=== PATIENT | female | born 1945 ===

== ENCOUNTER 2019-07-10 21:19 | Emergency (ER) | payer SELFPAY ==
[~2019-07-10] VITALS: Ht 142.2 cm; Wt 71.7 kg
[2019-07-10] MEDS ORDERED: TRAM50 (23:47)
[2019-07-11 00:41] LABS: BASOPHILS ABSOLUTE AUTO 0.06 K/mm3 (0.00-0.23); BASOPHILS PERCENT AUTO 1 % (0-2); EOSINOPHILS PERCENT AUTO 4 % (0-6); Hemoglobin 11.9 g/dL (11.5-16.0); IMMATURE GRAN ABSOLUTE AUTO 0.06 K/mm3 (0.00-0.10); IMMATURE GRAN PERCENT AUTO 1 % (0-1); LYMPHOCYTES ABSOLUTE AUTO 2.26 K/mm3 (0.84-5.20); LYMPHOCYTES PERCENT AUTO 31 % (21-46); MONOCYTES PERCENT AUTO 12 % (4-13); Mean Corpuscular HGB 31.6 pg (26.0-34.0); Mean Corpuscular HGB Conc 33.1 g/dL (31.5-36.5); Mean Corpuscular Volume 96 fL (80-100); Mean Platelet Volume 9.4 fL (9.1-12.4); NEUTROPHILS PERCENT AUTO 51 % (41-73); Platelet Count 354 K/mm3 (150-400); RDW Coefficient Variation 11.2 % (11.7-14.2); RDW Standard Deviation 39.5 fL (35.1-46.3); Red Blood Cell Count 3.76 M/mm3 (3.80-5.20); White Blood Cell Count 7.28 K/mm3 (4.00-11.30)
[2019-07-11 00:59] LABS: Alanine Aminotransfer (ALT/SGP 19 U/L (12-78); Albumin, Blood 3.1 g/dL (3.4-5.0); Albumin/Globulin Ratio 0.8 (0.8-1.8); Alk Phos 73 U/L (50-136); Anion Gap 8 mmol/L (6-16); Aspartate Aminotrans (AST/SGOT 13 U/L (12-37); Bilirubin, Total 0.2 mg/dL (0.1-1.0); Blood Urea Nitrogen 17 mg/dL (8-24); Bun/Creatinine Ratio 21.2 (12.0-20.0); CO2, Blood 28 mmol/L (21-32); Calcium, Blood 8.8 mg/dL (8.5-10.1); Chloride, Blood 105 mmol/L (98-108); Globulin, Blood 3.8 g/dL (2.2-4.0); Glomerular Filtration Rate >60 (60-); Glucose, Blood 136 mg/dL (70-99); Potassium, Blood 3.1 mmol/L (3.5-5.5); Sodium, Blood 141 mmol/L (136-145); Total Protein, Blood 6.9 g/dL (6.4-8.2)
[2019-07-11] MEDS ORDERED: Lasix20 MG PO (01:54)
[2019-07-11] MEDS ORDERED: Klor-Con M1010 MEQ PO (01:54)
[2019-07-13] MEDS ORDERED: POTA10T PO (14:11)
[2019-07-13] MEDS ORDERED: LOSA50 PO (14:13)
[2019-07-13] MEDS ORDERED: EUTHYROX100 MCG PO (14:14)
== END 2019-07-11 02:29 | disposition home or self-care (01) ==
LOC: ER 21:19
PROVIDERS: Physician Assistant
DX: M71.21 Synovial cyst of popliteal space [Baker], right knee (principal); E87.6 Hypokalemia; R60.0 Localized edema
CPT/HCPCS: 36415; 80053; 83880; 85025; 93970; 99284-25

== ENCOUNTER 2019-07-28 09:26 | Day surgery (SDC) | payer SELFPAY ==
[~2019-07-28] VITALS: Ht 154.9 cm; Wt 68.7 kg
[~2019-07-28 09:26] MED LIST: EUTHYROX100 MCG PO; Klor-Con M1010 MEQ PO; LOSA50 PO; Lasix20 MG PO; POTA10T PO; TRAM50
--- NOTE | 2019-07-28 09:59 | NUR ---
INTO [facility]-ESCORTED BY DAUGHTER DUSTIN. PT IS PRIMARIY [place]IN[place] SPEAKING AND HAD DECLINED DENTAL INSURANCE COORDINATOR. HISTORY AND ALLERGIES CONFIRMED. NPO STATUS CONFIRMED. LUNGS CLEAR. Patient reports completing Chlorhexadine shower X2 prior to admission to hospital.Surgical site prepped with 2% Chlorhexidine cloth wipe.NOSYN AND PERIDEX PER ORTHO PROTOCOL.
--- NOTE | 2019-07-28 10:57 | NUR ---
STAT TYPE AND SCREEN DRAWN AND SENT TO LAB. PT AMBULATED TO [facility] WITH DAUGHTER'S ASSISTANCE.
--- NOTE | 2019-07-28 17:54 | NUR ---
PT THROUGHT WITH DINNER. STILL SITTING IN CHAIR. MEDICATED WITH SCHEDULED TORADOL.
--- NOTE | 2019-07-28 19:00 | NUR ---
REPORT AND WALKING ROUNDS WITH ZAHIDA Byrnes RN.
[2019-07-29 04:51] LABS: BASOPHILS ABSOLUTE AUTO 0.02 K/mm3 (0.00-0.23); BASOPHILS PERCENT AUTO 0 % (0-2); EOSINOPHILS ABSOLUTE AUTO 0.01 K/mm3 (0.00-0.68); EOSINOPHILS PERCENT AUTO 0 % (0-6); Hematocrit 31.2 % (33.0-51.0); Hemoglobin 10.5 g/dL (11.5-16.0); IMMATURE GRAN ABSOLUTE AUTO 0.07 K/mm3 (0.00-0.10); IMMATURE GRAN PERCENT AUTO 0 % (0-1); LYMPHOCYTES ABSOLUTE AUTO 1.59 K/mm3 (0.84-5.20); LYMPHOCYTES PERCENT AUTO 9 % (21-46); MONOCYTES ABSOLUTE AUTO 1.38 K/mm3 (0.16-1.47); MONOCYTES PERCENT AUTO 8 % (4-13); Mean Corpuscular HGB Conc 33.7 g/dL (31.5-36.5); Mean Corpuscular Volume 92 fL (80-100); Mean Platelet Volume 9.6 fL (9.1-12.4); NEUTROPHILS ABSOLUTE AUTO 14.62 K/mm3 (1.96-9.15); NEUTROPHILS PERCENT AUTO 83 % (41-73); Platelet Count 359 K/mm3 (150-400); RDW Coefficient Variation 10.8 % (11.7-14.2); RDW Standard Deviation 36.8 fL (35.1-46.3); Red Blood Cell Count 3.39 M/mm3 (3.80-5.20); White Blood Cell Count 17.69 K/mm3 (4.00-11.30)
[2019-07-29 05:08] LABS: Anion Gap 7 mmol/L (6-16); Blood Urea Nitrogen 20 mg/dL (8-24); CO2, Blood 26 mmol/L (21-32); Calcium, Blood 8.5 mg/dL (8.5-10.1); Chloride, Blood 108 mmol/L (98-108); Creatinine, Blood 0.83 mg/dL (0.40-1.00); Glomerular Filtration Rate >60 (60-); Glucose, Blood 130 mg/dL (70-99); Potassium, Blood 3.6 mmol/L (3.5-5.5); Sodium, Blood 141 mmol/L (136-145)
--- NOTE | 2019-07-29 05:37 | NUR ---
PATIENT HAS BEEN UP FOR 2 WALKS TONIGHT WITH FWW AND GAIT BELT WITH MINIMAL ASSIST. UP TO THE BR WITH HELP TO THE NIGHT. DAUGHTER STAYES THE NIGHT A COMFORT TO HER MOM. PATIENT HAS NOT HAD ANY PAIN THROUGH OUT THE NIGHT. NO ACUTE CHANGES.
--- NOTE | 2019-07-29 08:19 | NUR ---
PATIENT IS CHINESE SPEAKING, PATIENTS DAUGHTER AT BEDSIDE DURING MY ASSESSMENT AND ASSISTING WITH OUR CONVERSATION NEEDED.
[2019-07-29] MEDS ORDERED: Percocet 5-3251 EACH PO (08:49)
[2019-07-29] MEDS ORDERED: ASPI81CH PO (08:49)
--- NOTE | 2019-07-29 10:13 | NUR ---
discharged to home with family
== END 2019-07-29 10:12 | disposition home or self-care (01) ==
LOC: ORSCMMR 09:26 → ORD 11:00 → ORSCMMR 11:00 → SURS 13:51 → ORSCMMR 07-29 10:12
PROVIDERS: Orthopaedic Surgery
PROC: 0SRD0JA Replacement of Left Knee Joint with Synthetic Substitute, Uncemented, Open Approach (ICD-10-PCS; principal; 2019-07-28 11:00)
DX: M17.12 Unilateral primary osteoarthritis, left knee (principal); I10 Essential (primary) hypertension; K21.9 Gastro-esophageal reflux disease without esophagitis; E03.9 Hypothyroidism, unspecified; Z79.899 Other long term (current) drug therapy
CPT/HCPCS: 36415; 73560-LT; 80048; 85025; 86900; 86901; 88300; 97110; 97116; 97161; 97530; C1776; J0171; J0690; J0735; J1100; J1885; J2250; J2405; J2704; J2765; J2795; J7120

== ENCOUNTER → 2019-08-12 | Outpatient (CLI) | payer SELFPAY ==
[~2019-08-12] MED LIST changes: +ASPI81CH PO; +Percocet 5-3251 EACH PO
[2019-08-12 13:40] LABS: BASOPHILS ABSOLUTE AUTO 0.08 K/mm3 (0.00-0.23); BASOPHILS PERCENT AUTO 1 % (0-2); EOSINOPHILS ABSOLUTE AUTO 0.29 K/mm3 (0.00-0.68); EOSINOPHILS PERCENT AUTO 4 % (0-6); Hematocrit 33.7 % (33.0-51.0); Hemoglobin 10.7 g/dL (11.5-16.0); IMMATURE GRAN ABSOLUTE AUTO 0.06 K/mm3 (0.00-0.10); IMMATURE GRAN PERCENT AUTO 1 % (0-1); LYMPHOCYTES ABSOLUTE AUTO 2.12 K/mm3 (0.84-5.20); LYMPHOCYTES PERCENT AUTO 29 % (21-46); MONOCYTES ABSOLUTE AUTO 0.58 K/mm3 (0.16-1.47); MONOCYTES PERCENT AUTO 8 % (4-13); Mean Corpuscular HGB 30.3 pg (26.0-34.0); Mean Corpuscular HGB Conc 31.8 g/dL (31.5-36.5); Mean Corpuscular Volume 96 fL (80-100); Mean Platelet Volume 9.4 fL (9.1-12.4); NEUTROPHILS ABSOLUTE AUTO 4.22 K/mm3 (1.96-9.15); NEUTROPHILS PERCENT AUTO 58 % (41-73); Platelet Count 676 K/mm3 (150-400); RDW Coefficient Variation 11.6 % (11.7-14.2); Red Blood Cell Count 3.53 M/mm3 (3.80-5.20); White Blood Cell Count 7.35 K/mm3 (4.00-11.30)
== END | disposition home or self-care (01) ==
LOC: LAB SHORT 12:45 → LAB 12:45 → LAB FUT 06-29 09:50 → EDSTATUS 06-29 09:50
PROVIDERS: Physician Assistant
DX: E87.6 Hypokalemia (principal); D64.9 Anemia, unspecified; R73.9 Hyperglycemia, unspecified
CPT/HCPCS: 83036; 85025